=== PATIENT | female | born 1970 | race Caucasian/White ===

== ENCOUNTER 2017-01-11 07:59 | Outpatient (CLI) | payer BC, OTHER ==
--- NOTE | 2017-01-11 16:11 | Mammography Report ---
BILATERAL DIGITAL SCREENING MAMMOGRAM with CAD: 01/11/17 07:59:00 CLINICAL: Routine screening. COMPARISON:01/05/16 FINDINGS: The breasts are heterogeneously dense, which may obscure small masses. No mass, architectural distortion or suspicious calcifications. IMPRESSION: No mammographic evidence of malignancy. BI-RADS CATEGORY: 1 - - Negative RECOMMENDATION: Routine mammographic screening in one year. COMMENT: Patient follow-up letters are generated by our [employer] application.
== END 2017-01-11 08:00 | disposition home or self-care (01) ==
LOC: MAMMO 07:59
PROVIDERS: ATTEND Obstetrics & Gynecology
DX: Z12.31 Encounter for screening mammogram for malignant neoplasm of breast (principal)
CPT/HCPCS: 77067; G0202

== ENCOUNTER 2018-02-01 15:26 | Outpatient (CLI) | payer BC ==
--- NOTE | 2018-02-01 16:26 | Ultrasound Report ---
LEFT DIGITAL DIAGNOSTIC MAMMOGRAM and LEFT BREAST ULTRASOUND: 02/01/18 15:26:00 CLINICAL: Recalled for asymmetries identified on screening tomosynthesis. COMPARISON:01/12/18 screening FINDINGS: True lateral and spot compression MLO and CC views were performed. Near complete effacement of previously described asymmetries. Ultrasound of the left breast (including all four quadrants and the retroareolar area) was performed and demonstrated multiple benign cysts which appear to correlate with mammographic asymmetries. No solid mass or shadowing. This is a 12 o'clock 4 cm from the nipple measures 6 x 3 x 8 mm. A septated cyst at 1 o'clock 7 cm from the nipple measures 5 x 4 x 6 mm. A cyst at 3 o'clock 5 cm from the nipple measures 6 x 4 x 9 mm. A cyst at 7 o'clock 3 cm from the nipple measures 7 x 2 x 6 mm and a cyst at 9 o'clock 7 cm from the nipple measures 5 x 5 x 4 mm. IMPRESSION: Multiple benign cysts and no suspicious finding. BI-RADS CATEGORY: 2 - - Benign RECOMMENDATION: Routine mammographic screening in one year. ACR BI-RADS MAMMOGRAPHIC CODES: 0 = Needs additional imaging evaluation; 1 = Negative; 2 = Benign; 3 = Probably benign; 4 = Suspicious; 5 = Malignant; 6 = Known biopsy-proven malignancy COMMENT: 1. Dense breast tissue, i.e., adenosis, fibrocystic changes, etc., may obscure an underlying neoplasm. 2. Approximately 10% of cancers are not detected with mammography. 3. A negative mammography report should not delay biopsy if a clinically suspicious mass is present. COMMENT: Patient follow-up letters are generated via our [email or web address] application.
== END 2018-02-01 15:27 | disposition home or self-care (01) ==
LOC: SPVWC 15:26
PROVIDERS: ATTEND Obstetrics & Gynecology
DX: N60.02 Solitary cyst of left breast (principal)

== ENCOUNTER 2018-07-17 14:34 | Outpatient (CLI) | payer BC ==
--- NOTE | 2018-07-19 06:21 | Ultrasound Report ---
PROCEDURE: US THYROID SCAN TECHNIQUE: Focused real-time grayscale sonography in multiple planes of the thyroid gland and soft t issues of the neck was performed with image documentation. HISTORY: ENLARGED THYROID COMPARISONS: None FINDINGS: RIGHT LOBE: Size: 5.4 x 1.4 x 2.2 cm. Appearance: There is a 3 mm nodule in the superior aspect of the right lobe. Echotexture is heteroge neous. LEFT LOBE: Size: 5.1 x 1.5 x 2.1 cm. Appearance: Echotexture is heterogeneous. There is no discrete mass. ISTHMUS: Size: 8 mm. Appearance: Echotexture is heterogeneous. There is no discrete mass. IMPRESSION: Enlarged heterogeneous thyroid. There is a discrete 3 mm nodule in the right lobe. This document is electronically signed by Anil Harrison MD., July 19 2018 06:19:43 AM ET
== END 2018-07-17 14:35 | disposition home or self-care (01) ==
LOC: US 14:34
PROVIDERS: ATTEND Family Medicine Adult Medicine
DX: E04.9 Nontoxic goiter, unspecified (principal)
CPT/HCPCS: 76536

== ENCOUNTER 2019-03-15 14:46 | Outpatient (CLI) | payer BC ==
--- NOTE | 2019-03-18 11:18 | Mammography Report ---
DIGITAL SCREENING MAMMOGRAM WITH CAD, 03/15/2019 INDICATION: Routine screening mammography. TECHNIQUE: Digital bilateral 2D mammography was obtained in the craniocaudal and mediolateral obliq ue projections. This examination was interpreted with the benefit of Computer-Aided Detection analysi s. COMPARISON: 01/12/2018 and 01/11/2017 FINDINGS: Breast Density: The breasts are heterogeneously dense, which may obscure small masses. Bilateral parenchymal asymmetries require additional imaging. There is no evidence of suspicious calc ifications or architectural distortion in either breast. IMPRESSION: Bilateral asymmetries requiring additional imaging. Recommend recall for bilateral spot c ompression views and bilateral breast ultrasound if needed. Follow up recommendation: Special View: Spot Category 0: Incomplete. Needs additional imaging evaluation and/or prior mammograms for comparison. A "normal" or negative report should not discourage follow up or biopsy of a clinically significant f inding. A written summary of these findings will be mailed to the patient. The patient will be entered into a mammography reporting system which will generate a reminder letter for the patient's next appointmen t at the appropriate interval. The [employer] recommends yearly mammograms starting at age 40 and continuing as l geovanna as a woman is in good health. Breast MRI is recommended for women with an approximate 20-25% or greater lifetime risk of breast cancer, including women with a strong family history of breast or ova jim cancer or who have been treated for Hodgkin's disease. Signer Name: Marky Russo MD Signed: 03/18/2019 11:13 AM Workstation Name: [id number]
== END 2019-03-15 14:47 | disposition home or self-care (01) ==
LOC: MAMMO 14:46
PROVIDERS: ATTEND Obstetrics & Gynecology
DX: Z12.31 Encounter for screening mammogram for malignant neoplasm of breast (principal)
CPT/HCPCS: 77067

== ENCOUNTER 2019-04-04 13:45 | Outpatient (CLI) | payer BC, OTHER ==
--- NOTE | 2019-04-04 14:44 | Mammography Report ---
DIGITAL DIAGNOSTIC MAMMOGRAM WITH CAD, 04/04/2019 INDICATION: Recall for bilateral asymmetries. ABN MAMMO TECHNIQUE: Digital bilateral mammographic imaging was performed. Spot compression views were obtaine d. This examination was interpreted with the benefit of Computer-aided Detection analysis. COMPARISON: 03/15/2019 FINDINGS: Breast Density: The breasts are heterogeneously dense, which may obscure small masses. Bilateral additional mammographic views were performed and are negative. Satisfactory effacement of a symmetries. IMPRESSION: No mammographic evidence of malignancy. Follow up recommendation: Routine yearly BI-RADS Category 1: Negative. A "normal" or negative report should not discourage follow up or biopsy of a clinically significant f inding. A written summary of these findings will be mailed to the patient. The patient will be entered into a mammography reporting system which will generate a reminder letter for the patient's next appointmen t at the appropriate interval. According to the [employer], yearly mammograms are recommended starting at age 40 and continuing as long as a woman is in good health. Breast MRI is recommended for women with an flora roximately 20-25% or greater lifetime risk of breast cancer, including women with a strong family his tory of breast or ovarian cancer and women who have been treated for Hodgkin's disease. Signer Name: Marky Russo MD Signed: 04/04/2019 2:39 PM Workstation Name: [id number]
== END 2019-04-04 13:46 | disposition home or self-care (01) ==
LOC: MAMMO 13:45
PROVIDERS: ATTEND Obstetrics & Gynecology
DX: R92.8 Other abnormal and inconclusive findings on diagnostic imaging of breast (principal)
CPT/HCPCS: 77066

== ENCOUNTER 2020-03-17 16:08 | Outpatient (CLI) | payer BC, OTHER ==
--- NOTE | 2020-03-18 09:29 | Mammography Report ---
DIGITAL SCREENING MAMMOGRAM WITH CAD, 03/18/2020 CLINICAL INFORMATION / INDICATION: Routine screening mammography. TECHNIQUE: Digital bilateral 2D mammography was obtained in the craniocaudal and mediolateral obliqu e projections. This examination was interpreted with the benefit of Computer-Aided Detection analysis . COMPARISON: 02/10/2014, 04/04/2019 FINDINGS: Breast Density: The breasts are heterogeneously dense, which may obscure small masses. No dominant mass, suspicious calcifications, or architectural distortion in either breast. No interval change. IMPRESSION: No mammographic evidence of malignancy. Follow up recommendation: Routine yearly BI-RADS Category 2: Benign. A "normal" or negative report should not discourage follow up or biopsy of a clinically significant f inding. A written summary of these findings will be mailed to the patient. The patient will be entered into a mammography reporting system which will generate a reminder letter for the patient's next appointmen t at the appropriate interval. The [employer] recommends yearly mammograms starting at age 40 and continuing as l geovanna as a woman is in good health. Breast MRI is recommended for women with an approximate 20-25% or greater lifetime risk of breast cancer, including women with a strong family history of breast or ova jim cancer or who have been treated for Hodgkin's disease. Signer Name: Karen Jaquez MD Signed: 03/18/2020 9:25 AM Workstation Name: [id number]
== END 2020-03-17 16:09 | disposition home or self-care (01) ==
LOC: SPVWC 16:08
PROVIDERS: ATTEND Obstetrics & Gynecology
DX: Z12.31 Encounter for screening mammogram for malignant neoplasm of breast (principal)
CPT/HCPCS: 77067

== ENCOUNTER 2021-07-23 14:14 | Outpatient (CLI) | payer BC, OTHER | END 2021-07-23 14:15 | disposition home or self-care (01) | LOC: MAMMO 14:14 | PROVIDERS: ATTEND Obstetrics & Gynecology | DX: Z12.31 Encounter for screening mammogram for malignant neoplasm of breast (principal) | CPT/HCPCS: 77067 ==